=== PATIENT | male | born 1965 | race Caucasian/White ===

== ENCOUNTER 2016-09-10 08:35 | Inpatient (IN) | payer OTHER ==
[2016-09-10 09:01] VITALS: BMI 28.8
--- NOTE | 2016-09-10 12:26 | HP ---
CIWA Score - CIWA Score Nausea/Vomitin-Mild Nausea/No Vomiting (AND DIARRHEA) Muscle Tremors: 4-Moderate,w/Arms Extend Anxiety: 4-Mod. Anxious/Guarded Agitation: 4-Moderately Restless Paroxysmal Sweats: 3 Orientation: 0-Oriented Tacttile Disturbances: 0-None Auditory Disturbances: 0-None Visual Disturbances: 0-None Headache: 1-Very Mild CIWA-Ar Total Score: 17 Admission ROS BHS - HPI Chief Complaint: WITHDRAWAL SX. Allergies/Adverse Reactions: Allergies Allergy/AdvReac Type Severity Reaction Status Date / Time No Known Drug Allergies Allergy Verified 09/10/16 10:20 onion Allergy Difficulty Verified 09/10/16 10:20 Breathing shellfish derived Allergy Difficulty Verified 09/10/16 10:20 Breathing History of Present Illness: 51 Y/O MAN WITH A LONG HX. OF ALCOHOLISM IS ADMITTED FOR DETOX. PT. HAS BEEN IN PREVIOUS DETOX, REPORTS 5 YRS. OF SOBRIETY. Exam Limitations: No Limitations - Ebola screening Have you traveled outside of the country in the last 21 days: No Have you had contact with anyone from an Ebola affected area: No Have you been sick,other than usual withdrawal symptoms: No Do you have a fever: No - Review of Systems Constitutional: Diaphoresis EENT: reports: No Symptoms Reported Respiratory: reports: Cough (NON-PRODUCTIVE) Cardiac: reports: No Symptoms Reported GI: reports: Diarrhea : reports: No Symptoms Reported Musculoskeletal: reports: No Symptoms Reported Integumentary: reports: Sweating Endocrine: reports: No Symptoms Reported Hematology: reports: No Symptoms Reported Psychiatric: reports: No Sypmtoms Reported Other Systems: Reviewed and Negative Patient History - Patient Medical History Hx Anemia: No Hx Asthma: No Hx Chronic Obstructive Pulmonary Disease (COPD): No Hx Cancer: No Hx Cardiac Disorders: No Hx Congestive Heart Failure: No Hx Hypertension: No Hx Hypercholesterolemia: Yes (CRESTOR) Hx Pacemaker: No HX Cerebrovascular Accident: No Hx Seizures: No Hx Dementia: No Hx Diabetes: No Hx Gastrointestinal Disorders: No Hx Liver Disease: No Hx Genitourinary Disorders: No Hx Sexually Transmitted Disorders: No Hx Renal Disease (ESRD): No Hx Thyroid Disease: No Hx Human Immunodeficiency Virus (HIV): No Hx Hepatitis C: No Hx Depression: Yes Hx Suicide Attempt: No Hx Bipolar Disorder: Yes Hx Schizophrenia: No - Patient Surgical History Past Surgical History: Yes Hx Orthopedic Surgery: Yes (left knee torn ACL repair) Anesthesia Reaction: No - PPD History Previous Implant?: Yes Implanted On Prior [facility] Admission?: Yes Date: 03/30/16 PPD to be Administered?: Yes - Smoking Cessation Smoking history: Current every day smoker Have you smoked in the past 12 months: Yes Aproximately how many cigarettes per day: 10 Hx Chewing Tobacco Use: No Initiated information on smoking cessation: Yes 'Breaking Loose' booklet given: 09/10/16 - Substance & Tx. History Hx Alcohol Use: Yes Hx Substance Use: Yes Substance Use Type: Alcohol, Marijuana Hx Substance Use Treatment: Yes (DETOX,IOP) - Substances Abused Alcohol Route: Oral Frequency: Daily Amount used: vodka(1 quart)?beer(5-6 cans cobra) Age of first use: 11 Date of Last Use: 09/09/16 Marijuana/Hashish Route: Smoking Frequency: Daily Amount used: $5 Age of first use: 12 Date of Last Use: 09/09/16 Family Disease History - Family Disease History Family Disease History: Diabetes: Sister, Heart Disease: Mother (, alcohol), CA: Father (prostate cancer, etoh, ), Other: Father, Mother Admission Physical Exam [facility] - Vital Signs Vital Signs: Vital Signs - 24 hr 09/10/16 08:55 Temperature 95.1 F L Pulse Rate 71 Respiratory 18 Rate Blood Pressure 153/92 - Physical General Appearance: Yes: Alcohol on Breath, Tremorous, Sweating, Anxious HEENTM: Yes: Within Normal Limits Respiratory: Yes: Chest Non-Tender, Lungs Clear, Normal Breath Sounds Neck: Yes: Supple Breast: Yes: Breast Exam Deferred Cardiology: Yes: Regular Rhythm, Regular Rate, S1, S2 Abdominal: Yes: Normal Bowel Sounds, Non Tender, Soft Genitourinary: Yes: Within Normal Limits Back: Yes: Within Normal Limits Musculoskeletal: Yes: Within Normal Limits Extremities: Yes: Tremors Neurological: Yes: Fully Oriented, Alert Integumentary: Yes: Diaphoresis Lymphatic: Yes: Within Normal Limits - Diagnostic (1) Alcohol dependence with uncomplicated withdrawal Current Visit: Yes Status: Acute (2) Cannabis dependence, uncomplicated Current Visit: Yes Status: Acute Cleared for Admission [facility] - Detox or Rehab [facility] Level of Care: Medically Managed Detox Regimen/Protocol: Librium BHS Breath Alcohol Content Breath Alcohol Content: 0 Urine Drug Screen - Results Drug Screen Negative: No Urine Drug Screen Results: THC-Marijuana
[2016-09-10] MEDS ORDERED: LOPERAMIDE HCL 2 MG CAPSULE PO PRN (12:36)
[2016-09-10] MEDS ORDERED: IBUPROFEN 400 MG TABLET (FP) PO PRN (12:36)
[2016-09-10] MEDS ORDERED: MAGNESIUM CITRATE 300 ML BOTTLE PO PRN (12:36)
[2016-09-10] MEDS ORDERED: hydrOXYzine PAMOATE 50 MG CAPSULE (FP) PO PRN (12:36)
[2016-09-10] MEDS ORDERED: chlordiazePOXIDE HCL 25 MG CAPSULE PO PRN (12:36)
[2016-09-10] MEDS ORDERED: MAG HYDROX/AL HYDROX/SIMETH 30 ML UNIT-DOSE CUP PO PRN (12:36)
[2016-09-10] MEDS ORDERED: P-EPHED 60MG/TRIPROLIDI 2.5MG TABLET PO PRN (12:36)
[2016-09-10] MEDS ORDERED: guaiFENesin/D-METHORPHAN HB 10 ML UNIT-DOSE CUPS PO PRN (12:36)
[2016-09-10] MEDS ORDERED: MENTHOL/PHENOL 1 EACH UD MM PRN (12:36)
[2016-09-10] MEDS ORDERED: MAGNESIUM HYDROX 2400MG/30ML ORAL SUSPENSION 30 ML CUP PO PRN (12:36)
[2016-09-10] MEDS ORDERED: chlordiazePOXIDE HCL 25 MG CAPSULE PO ONE (12:58)
[2016-09-10] MEDS: NICOTINE POLACRILEX 2 MG GUM BUC PRN ×3 (13:50→20:36)
[2016-09-10] MEDS: NICOTINE 21 MG/24 HOURS TOPICAL PATCH TD SCH (13:50)
--- NOTE | 2016-09-10 16:14 | CONSULT ---
[facility] Psychiatric Consult - Data Date of interview: 09/10/16 Admission source: [facility] Identifying data: This is 51 years old male with history of Bip[olar disorder intpoxicated with: Alcohol, Cannabis, Nicotine, history of Op[ipoids, Cocaine and Xanax abuse as well Substance Abuse History: - Smoking Cessation. Smoking history: Current every day smoker. Have you smoked in the past 12 months: Yes. Aproximately how many cigarettes per day: 10. Hx Chewing Tobacco Use: No. Initiated information on smoking cessation: Yes. 'Breaking Loose' booklet given: 09/10/16. - Substance & Tx. History. Hx Alcohol Use: Yes. Hx Substance Use: Yes. Substance Use Type : Alcohol, Marijuana. Hx Substance Use Treatment: Yes (DETOX,IOP). - Substances Abused. Alcohol. Route: Oral. Frequency: Daily. Amount used: vodka(1 quart)?beer(5-6 cans cobra). Age of first use: 11. Date of Last Use: 09/09/16. Marijuana/Hashish. Route: Smoking. Frequency: Daily. Amount used: $5. Age of first use: 12. Date of Last Use: 09/09/16 Medical History: Denies Psychiatric History: P[atient reports to carry nBipolar disorder, reports no history of psychiatric admissions, reports currently stable on: Cymbalta 60mg poqd. Abilify 5mg po bid Physical/Sexual Abuse/Trauma History: Denies Additional Comment: Cymbalta 60mg poqd. Abilify 5mg po bid Mental Status Exam - Mental Status Exam Alert and Oriented to: Person Cognitive Function: Fair Patient Appearance: Well Groomed Mood: Anxious Affect: Mood Congruent, Normal Range Patient Behavior: Cooperative Speech Pattern: Appropriate Voice Loudness: Normal Thought Process: Goal Oriented Thought Disorder: Being Controlled Hallucinations: Denies Suicidal Ideation: Denies Homicidal Ideation: Denies Insight/Judgement: Fair Sleep: Difficulty falling asleep Appetite: Fair Muscle strength/Tone: Normal Gait/Station: Normal Additional Comments: Cymbalta 60mg poqd. Abilify 5mg po bid Psychiatric Findings - Problem List ([place] 1, 2,3) (1) Alcohol dependence with uncomplicated withdrawal Current Visit: Yes Status: Acute (2) Cannabis dependence, uncomplicated Current Visit: Yes Status: Acute (3) Cocaine dependence Current Visit: No Status: Acute Qualifiers: Substance use status: uncomplicated Qualified Code(s): F14.20 - Cocaine dependence, uncomplicated (4) Crack cocaine use Current Visit: No Status: Acute (5) Opioid abuse Current Visit: No Status: Acute (6) Sedative abuse Current Visit: No Status: Acute (7) Nicotine dependence Current Visit: No Status: Chronic Qualifiers: Nicotine product type: cigarettes Substance use status: uncomplicated Qualified Code(s): F17.210 - Nicotine dependence, cigarettes, uncomplicated (8) Bipolar disorder Current Visit: No Status: Suspected - Initial Treatment Plan Initial Treatment Plan: Cymbalta 60mg poqd. Abilify 5mg po bid
[2016-09-10] MEDS: chlordiazePOXIDE HCL 25 MG CAPSULE PO SCH ×2 (17:18→22:13)
[2016-09-10 17:30] LABS: URINE APPEARANCE CLEAR; URINE BILIRUBIN NEGATIVE (NEGATIVE); URINE BLOOD NEGATIVE (NEGATIVE); URINE COLOR YELLOW; URINE GLUCOSE (UA) NEGATIVE (NEGATIVE); URINE KETONE NEGATIVE (NEGATIVE); URINE LEUK ESTERASE NEGATIVE (NEGATIVE); URINE NITRITE NEGATIVE (NEGATIVE); URINE PROTEIN NEGATIVE (NEGATIVE); URINE UROBILINOGEN NEGATIVE E.U./dl (0.2-1.0)
[2016-09-10 19:45] LABS: HIV 1 & 2 AB NEGATIVE; HIV 1 AGp24 NEGATIVE
[2016-09-10] MEDS: THIAMINE HCL 100 MG TABLET (FP) PO SCH (22:12)
[2016-09-10] MEDS: ARIPiprazole 5 MG TABLET (FP) PO SCH (22:12)
[2016-09-10] MEDS: diphenhydrAMINE HCL 50 MG CAPSULE PO PRN (22:13)
[2016-09-11] MEDS: chlordiazePOXIDE HCL 25 MG CAPSULE PO SCH ×4 (05:25→22:06)
[2016-09-11 10:38] LABS: ALBUMIN 4.1 g/dl (3.4-5.0); ALK PHOS 109 U/L (45-117); ANION GAP 9 (8-16); BILIRUBIN,TOTAL 0.4 mg/dL (0.2-1.0); CALCIUM 8.9 mg/dL (8.5-10.1); CO2 24 mmol/L (21-32); CREATININE 0.9 mg/dL (0.7-1.3); GLUCOSE,RANDOM 106 mg/dL (74-106); SGOT/AST 29 U/L (15-37); SGPT/ALT 45 U/L (12-78); TOT PROT 7.3 g/dl (6.4-8.2)
--- NOTE | 2016-09-11 10:39 | PN ---
S CIWA - CIWA Score Nausea/Vomitin Muscle Tremors: 3 Anxiety: 3 Agitation: 2 Paroxysmal Sweats: 1-Minimal Palms Moist Orientation: 0-Oriented Tacttile Disturbances: 1-Very Mild Itch/Numbness Auditory Disturbances: 1-Very Mild Visual Disturbances: 1-Very Mild Sensitivity Headache: 2-Mild CIWA-Ar Total Score: 17 BHS Progress Note (SOAP) Subjective: alert,irritable,anxious,interrupted sleep,tremor Objective: 09/11/16 10:36 Vital Signs Temperature 98.5 F 09/11/16 09:56 Pulse Rate 81 09/11/16 09:56 Respiratory Rate 16 09/11/16 09:56 Blood Pressure 136/93 09/11/16 09:56 O2 Sat by Pulse Oximetry (%) ekg nsr,normal ecg Laboratory Last Values Sodium 139 mmol/L (136-145) 09/11/16 06:00 Potassium 3.6 mmol/L (3.5-5.1) 09/11/16 06:00 Chloride 106 mmol/L (98-107) 09/11/16 06:00 Urine Color Yellow 09/10/16 15:00 Urine Appearance Clear 09/10/16 15:00 Urine pH 5.0 (5.0-8.0) 09/10/16 15:00 Ur Specific [place] 1.028 (1.001-1.035) 09/10/16 15:00 Urine Protein Negative (NEGATIVE) 09/10/16 15:00 Urine Glucose (UA) Negative (NEGATIVE) 09/10/16 15:00 Urine Ketones Negative (NEGATIVE) 09/10/16 15:00 Urine Blood Negative (NEGATIVE) 09/10/16 15:00 Urine Nitrite Negative (NEGATIVE) 09/10/16 15:00 Urine Bilirubin Negative (NEGATIVE) 09/10/16 15:00 Urine Urobilinogen Negative E.U./dl (0.2-1.0) 09/10/16 15:00 Ur Leukocyte Esterase Negative (NEGATIVE) 09/10/16 15:00 HIV 1&2 Antibody Screen Negative 09/10/16 11:40 HIV P24 Antigen Negative 09/10/16 11:40 09/11/16 10:38 labs pending Assessment: 09/11/16 10:38 withdrawal symptom Plan: continue detox
[2016-09-11] MEDS: NICOTINE 21 MG/24 HOURS TOPICAL PATCH TD SCH (10:46)
[2016-09-11] MEDS: ARIPiprazole 5 MG TABLET (FP) PO SCH ×2 (10:46→22:06)
[2016-09-11] MEDS: DULoxetine HCL 60 MG CAPSULE.DR PO SCH (10:46)
[2016-09-11] MEDS: PRENATAL VITAMINS W/ FOLIC ACID TABLET (FP) PO SCH (10:48)
[2016-09-11 10:59] LABS: MCH 31.4 pg (25.7-33.7); MCHC 34.1 g/dl (32.0-35.9); MEAN PLT VOLUME 9.5 fl (7.5-11.1); PLATELET COUNT 221 K/MM3 (134-434); RDW 13.7 % (11.9-15.9); WHITE BLOOD COUNT 8.9 K/mm3 (4.0-10.0)
[2016-09-11] MEDS: ACETAMINOPHEN 325 MG TABLET (FP) PO PRN (13:05)
[2016-09-11] MEDS: NICOTINE POLACRILEX 2 MG GUM BUC PRN (17:25)
[2016-09-11] MEDS: diphenhydrAMINE HCL 50 MG CAPSULE PO PRN (22:06)
[2016-09-11] MEDS: THIAMINE HCL 100 MG TABLET (FP) PO SCH (22:06)
[2016-09-12] MEDS: chlordiazePOXIDE HCL 25 MG CAPSULE PO SCH ×2 (05:55→10:32)
[2016-09-12] MEDS: DULoxetine HCL 60 MG CAPSULE.DR PO SCH (10:32)
[2016-09-12] MEDS: NICOTINE 21 MG/24 HOURS TOPICAL PATCH TD SCH (10:32)
[2016-09-12] MEDS: PRENATAL VITAMINS W/ FOLIC ACID TABLET (FP) PO SCH (10:32)
[2016-09-12] MEDS: ARIPiprazole 5 MG TABLET (FP) PO SCH ×2 (10:32→22:17)
[2016-09-12] MEDS: NICOTINE POLACRILEX 2 MG GUM BUC PRN ×3 (10:35→22:49)
[2016-09-12] MEDS: ACETAMINOPHEN 325 MG TABLET (FP) PO PRN (12:19)
[2016-09-12] MEDS: chlordiazePOXIDE 5 MG CAPSULE PO SCH ×2 (17:27→22:17)
[2016-09-12] MEDS: NICOTINE 14 MG/24 HOURS TOPICAL PATCH TD SCH (17:27)
--- NOTE | 2016-09-12 22:06 | PN ---
[id number] 3 Anxiety: 4-Mod. Anxious/Guarded Agitation: 4-Moderately Restless Paroxysmal Sweats: 3 Orientation: 0-Oriented Tacttile Disturbances: 0-None Auditory Disturbances: 0-None Visual Disturbances: 0-None Headache: 0-None Present CIWA-Ar Total Score: 14 BHS Progress Note (SOAP) Subjective: ANXIETY,TREMORS,SWEATING,INTERRUPTED SLEEP,RESTLESS. Objective: 09/12/16 22:04 Vital Signs - 8 hr 09/12/16 09/12/16 14:26 20:03 Temperature 96.4 F L 96.4 F L Pulse Rate 89 80 Respiratory 20 18 Rate Blood Pressure 152/92 121/77 Assessment: 09/12/16 22:05 Withdrawal sx Plan: CONTINUE DETOX
[2016-09-12] MEDS: THIAMINE HCL 100 MG TABLET (FP) PO SCH (22:17)
[2016-09-12] MEDS: diphenhydrAMINE HCL 50 MG CAPSULE PO PRN (22:17)
[2016-09-13] MEDS: chlordiazePOXIDE 5 MG CAPSULE PO SCH ×2 (05:13→10:08)
[2016-09-13] MEDS: NICOTINE POLACRILEX 2 MG GUM BUC PRN ×3 (05:16→22:42)
[2016-09-13] MEDS: PRENATAL VITAMINS W/ FOLIC ACID TABLET (FP) PO SCH (10:09)
[2016-09-13] MEDS: DULoxetine HCL 60 MG CAPSULE.DR PO SCH (10:09)
[2016-09-13] MEDS: ARIPiprazole 5 MG TABLET (FP) PO SCH ×2 (10:09→22:40)
[2016-09-13] MEDS: NICOTINE 14 MG/24 HOURS TOPICAL PATCH TD SCH (10:09)
[2016-09-13] MEDS ORDERED: ZOLPIDEM TARTRATE 10 MG TABLET (PARK CARE ONLY) PO PRN (15:04)
--- NOTE | 2016-09-13 15:07 | PN ---
BHS Progress Note (SOAP) Subjective: Sweats, interrupted sleep (patient states benadryl ineffective), anxiety Objective: 09/13/16 15:05 Last Vital Signs Temp Pulse Resp BP Pulse Ox 96.4 F L 91 H 18 123/84 09/13/16 13:36 09/13/16 13:36 09/13/16 13:36 09/13/16 13:36 Laboratory Tests 09/10/16 09/10/16 09/11/16 11:40 15:00 06:00 WBC 8.9 D RBC 4.22 Hgb 13.2 Hct 38.8 MCV 92.0 MCHC 34.1 RDW 13.7 Plt Count 221 D MPV 9.5 Sodium Potassium Chloride Carbon Dioxide Anion Gap BUN Creatinine Creat Clearance w eGFR Random Glucose Calcium Total Bilirubin AST ALT Alkaline Phosphatase Total Protein Albumin Urine Color Yellow Urine Appearance Clear Urine pH 5.0 Ur Specific [place] 1.028 Urine Protein Negative Urine Glucose (UA) Negative Urine Ketones Negative Urine Blood Negative Urine Nitrite Negative Urine Bilirubin Negative Urine Urobilinogen Negative Ur Leukocyte Esterase Negative RPR Titer HIV 1&2 Antibody Screen Negative HIV P24 Antigen Negative 09/11/16 09/11/16 06:00 06:00 WBC RBC Hgb Hct MCV MCHC RDW Plt Count MPV Sodium 139 Potassium 3.6 Chloride 106 Carbon Dioxide 24 Anion Gap 9 BUN 21 H D Creatinine 0.9 Creat Clearance w eGFR > 60 Random Glucose 106 D Calcium 8.9 Total Bilirubin 0.4 AST 29 D ALT 45 Alkaline Phosphatase 109 Total Protein 7.3 Albumin 4.1 Urine Color Urine Appearance Urine pH Ur Specific [place] Urine Protein Urine Glucose (UA) Urine Ketones Urine Blood Urine Nitrite Urine Bilirubin Urine Urobilinogen Ur Leukocyte Esterase RPR Titer Nonreactive HIV 1&2 Antibody Screen HIV P24 Antigen Labs noted Assessment: 09/13/16 15:06 Withdrawal symptoms Plan: Continue detox, ambien 10mg qhs prn for interrupted sleep
[2016-09-13] MEDS: chlordiazePOXIDE HCL 10 MG CAPSULE PO SCH ×2 (17:28→22:40)
[2016-09-13] MEDS: THIAMINE HCL 100 MG TABLET (FP) PO SCH (22:40)
[2016-09-14] MEDS: chlordiazePOXIDE HCL 10 MG CAPSULE PO SCH (05:37)
[2016-09-14 06:13] VITALS: BP 133/91; PULSE 99; TEMP 97.2
--- NOTE | 2016-09-14 09:17 | PN ---
S Progress Note (SOAP) Subjective: alert,no complaint Objective: 09/14/16 09:15 Vital Signs Temperature 97.2 F L 09/14/16 06:12 Pulse Rate 99 H 09/14/16 06:12 Respiratory Rate 18 09/14/16 06:12 Blood Pressure 133/91 09/14/16 06:12 O2 Sat by Pulse Oximetry (%) Assessment: 09/14/16 09:15 detox completed,no withdrawal symptom Plan: discharge today,follow up with after care program as arrangement
--- NOTE | 2016-09-14 09:21 | DS ---
[facility] Detox Discharge Summary Admission Date: 09/10/16 Discharge Date: 09/14/16 - History Present History: Alcohol Dependence, Cannabis Dependence Additional Comments: follow up with after [facility] program as arrangement and pmd for medical problem Pertinent Past History: insomnia - Physical Exam Results Vital Signs: Vital Signs Temperature 97.2 F L 09/14/16 06:12 Pulse Rate 99 H 09/14/16 06:12 Respiratory Rate 18 09/14/16 06:12 Blood Pressure 133/91 09/14/16 06:12 O2 Sat by Pulse Oximetry (%) Pertinent Admission Physical Exam Findings: withdrawal symptom - Treatment Hospital Course: Detox Protocol Followed, Detoxed Safely, Responded well, Discharged Condition Good, Rehab Referral Accepted Patient has Accepted a Re[facility] Referral to: [facility] - Medication Discharge Medications: Ambulatory Orders Aripiprazole [Abilify -] 5 mg PO DAILY 03/28/16 Duloxetine HCl [Cymbalta -] 30 mg PO BID 03/28/16 Aripiprazole [Abilify -] 5 mg PO BID #60 tablet 09/10/16 Duloxetine HCl [Cymbalta -] 60 mg PO DAILY #30 capsule. 09/10/16 - NBA Did Patient Leave Against Medical Advice: No
--- NOTE | 2016-09-16 10:17 | EKG ---
Test Reason : Blood Pressure : / mmHG Vent. Rate : 085 BPM Atrial Rate : 085 BPM P-R Int : 152 ms QRS Dur : 102 ms QT Int : 372 ms P-R-T Axes : -09 068 068 degrees QTc Int : 442 ms NORMAL SINUS RHYTHM NORMAL ECG NO PREVIOUS ECGS AVAILABLE Confirmed by THERON POWELL, MORGAN ([id number]) on 09/16/2016 10:17:30 AM Referred By: Ignacio Iqbal Confirmed By:MORGAN CRUMP MD
== END 2016-09-14 09:49 | disposition home or self-care (01) | DRG 775 ==
LOC: YASAS 08:35 → Y3N 12:47
PROVIDERS: ADMIT Internal Medicine; ATTEND Internal Medicine
PROC: HZ2ZZZZ Detoxification Services for Substance Abuse Treatment (ICD-10-PCS; principal; 2016-09-10)
DX: F10.230 Alcohol dependence with withdrawal, uncomplicated (principal); F12.20 Cannabis dependence, uncomplicated; F17.210 Nicotine dependence, cigarettes, uncomplicated; F31.9 Bipolar disorder, unspecified; G47.00 Insomnia, unspecified; E78.00 Pure hypercholesterolemia, unspecified
CPT/HCPCS: 36415; 80053; 81003; 85027; 86593; 87389; 93005; 93010

== ENCOUNTER 2018-10-08 08:31 | Inpatient (IN) | payer OTHER ==
[2018-10-08 09:23] VITALS: BMI 26.7
--- NOTE | 2018-10-08 09:48 | HP ---
COWS - Scale Resting Pulse: 0= [place] 80 or Below Sweatin= Chills/Flushing Restless Observation: 3= Extraneous Movement Pupil Size: 1= Pupils >than Normal Bone or Joint Aches: 2= Severe Diffuse Aches Runny Nose/ Eye Tearin= Runny Nose/Eyes GI Upset > 30mins: 3= Vomiting/Diarrhea Tremor Observation: 2= Slight Tremor Visible Yawning Observation: 2= >3x During Session Anxiety or Irritability: 2=Irritable/Anxious Goose Flesh Skin: 0=Smooth Skin COWS Score: 18 CIWA Score Nausea/Vomitin Muscle Tremors: 3 Anxiety: 3 Agitation: 2 Paroxysmal Sweats: 1-Minimal Palms Moist Orientation: 0-Oriented Tacttile Disturbances: 1-Very Mild Itch/Numbness Auditory Disturbances: 1-Very Mild Visual Disturbances: 0-None Headache: 2-Mild CIWA-Ar Total Score: 16 - Admission Criteria [facility] Guidelines: Admission for Medically Managed Detox: Requires at least one of the followin. CIWA greater than 12 2. Seizures within the past 24 hours 3. Delirium tremens within the past 24 hours 4. Hallucinations within the past 24 hours 5. Acute intervention needed for co occurring medical disorder 6. Acute intervention needed for co occurring psychiatric disorder 7. Severe withdrawal that cannot be handled at a lower level of care (continued vomiting, continued diarrhea, abnormal vital signs) requiring intravenous medication and/or fluids 8. Patient presents the following: CIWA greater than 12 Admission Criteria Met: Admission criteria met Admission ROS S - [facility] Chief Complaint: i need help to stop using heroin and alcohol Allergies/Adverse Reactions: Allergies Allergy/AdvReac Type Severity Reaction Status Date / Time No Known Drug Allergies Allergy Verified 09/10/16 10:20 onion Allergy Difficulty Verified 09/10/16 10:20 Breathing shellfish derived Allergy Difficulty Verified 09/10/16 10:20 Breathing History of Present Illness: this 53 years old male with heroin and alcohol dependence,seeking detox, withdrawal symptom,last treatment [facility] 7 to 09/14/16 history of hypertension,no med nicotine dependence longest period of sobriety 5 years seen in [facility] last night history of [place] bite 1 month still have numbness of finger tips Exam Limitations: No Limitations - Ebola screening Have you traveled outside of the country in the last 21 days: No (N) Have you had contact with anyone from an Ebola affected area: No Have you been sick,other than usual withdrawal symptoms: No Do you have a fever: No - Review of Systems Constitutional: Chills, Loss of Appetite, Malaise, Night Sweats, Changes in sleep, Weakness EENT: reports: Tearing, Nose Congestion Respiratory: reports: No Symptoms reported Cardiac: reports: No Symptoms Reported GI: reports: Diarrhea, Nausea, Vomiting, Abdominal cramping : reports: No Symptoms Reported Musculoskeletal: reports: Back Pain, Joint Pain, Muscle Pain, Joint Stiffness Integumentary: reports: Dryness Neuro: reports: Headache, Tremors Endocrine: reports: No Symptoms Reported Hematology: reports: No Symptoms Reported Psychiatric: reports: No Sypmtoms Reported, Judgement Intact, Mood/Affect Appropiate, Orientated x3 Other Systems: Reviewed and Negative Patient History - Patient Medical History Hx Anemia: No Hx Asthma: No Hx Chronic Obstructive Pulmonary Disease (COPD): No Hx Cancer: No Hx Cardiac Disorders: No Hx Congestive Heart Failure: No Hx Hypertension: No Hx Hypercholesterolemia: Yes (no med) Hx Pacemaker: No HX Cerebrovascular Accident: No Hx Seizures: No Hx Dementia: No Hx Diabetes: No Hx Gastrointestinal Disorders: No Hx Liver Disease: No Hx Genitourinary Disorders: No Hx Sexually Transmitted Disorders: No Hx Renal Disease (ESRD): No Hx Thyroid Disease: No Hx Human Immunodeficiency Virus (HIV): No (last 08/23 negative) Hx Hepatitis C: No Hx Depression: Yes Hx Suicide Attempt: No Hx Bipolar Disorder: Yes (no meds) Hx Schizophrenia: No Other Medical History: no suicidal,no homicidal, - Patient Surgical History Past Surgical History: Yes Hx Orthopedic Surgery: Yes (left knee torn ACL repair in 1979 ) Anesthesia Reaction: No - PPD History Previous Implant?: Yes Documented Results: Negative w/o proof Date: 09/12/16 PPD to be Administered?: Yes - Smoking Cessation Smoking history: Current every day smoker Have you smoked in the past 12 months: Yes Aproximately how many cigarettes per day: 10 Hx Chewing Tobacco Use: No Initiated information on smoking cessation: Yes 'Breaking Loose' booklet given: 10/08/18 - Substance & Tx. History Hx Alcohol Use: Yes Hx Substance Use: Yes Substance Use Type: Alcohol, Cocaine, Heroin, Marijuana Hx Substance Use Treatment: Yes ([facility] 09/10/16 to 09/14/16) - Substances Abused Heroin Route: Injection Frequency: Daily Amount used: 4 bags Age of first use: 24 Date of Last Use: 10/07/18 Alcohol Route: Oral Frequency: Daily Amount used: 10 of 24 ozs of beer Age of first use: 11 Date of Last Use: 10/08/18 Cocaine Route: Smoking Frequency: Daily Amount used: 100$ Age of first use: 24 Date of Last Use: 10/07/18 Marijuana/Hashish Route: Smoking Frequency: 1-2 times per week Amount used: 10$ Age of first use: 12 Date of Last Use: 10/07/18 Family Disease History - Family Disease History Family Disease History: Diabetes: Sister, Heart Disease: Mother (, alcohol), CA: Father (prostate cancer, etoh, ), Other: Father, Mother Admission Physical Exam S - Vital Signs Vital Signs: Vital Signs - 24 hr 10/08/18 09:21 Temperature 97.0 F L Pulse Rate 70 Respiratory 18 Rate Blood Pressure 147/86 - Physical General Appearance: Yes: Moderate Distress, Tremorous, Irritable, Sweating, Anxious HEENTM: Yes: Normal ENT Inspection, DANNY, Pharynx Normal Respiratory: Yes: Within Normal Limits, Lungs Clear, Normal Breath Sounds Neck: Yes: Within Normal Limits, Supple, Trachea in good position Breast: Yes: Within Normal Limits Cardiology: Yes: Within Normal Limits, Regular Rhythm, Regular Rate Abdominal: Yes: Within Normal Limits, Normal Bowel Sounds, Non Tender, Soft Genitourinary: Yes: Within Normal Limits Back: Yes: Normal Inspection, Muscle Spasm Musculoskeletal: Yes: Back pain, Muscle Pain Extremities: Yes: Tremors Neurological: Yes: wool brusher II-XII NML intact, Fully Oriented, Alert, Motor Strength 5/5 Integumentary: Yes: Dry Lymphatic: Yes: Within Normal Limits - Diagnostic (1) Opioid dependence with withdrawal Current Visit: Yes Status: Acute (2) Cannabis dependence, uncomplicated Current Visit: No Status: Acute (3) Cocaine dependence Current Visit: No Status: Acute Qualifiers: Substance use status: uncomplicated Qualified Code(s): F14.20 - Cocaine dependence, uncomplicated (4) Nicotine dependence Current Visit: No Status: Chronic Qualifiers: Nicotine product type: cigarettes Substance use status: uncomplicated Qualified Code(s): F17.210 - Nicotine dependence, cigarettes, uncomplicated (5) Alcohol dependence with uncomplicated withdrawal Current Visit: No Status: Acute (6) History of knee surgery Current Visit: Yes Status: Chronic Cleared for Admission [facility] - Detox or Rehab [facility] Level of Care: Medically Managed Detox Regimen/Protocol: Methadone/Librium [facility] Breath Alcohol Content Breath Alcohol Content: 0.033 Urine Drug Screen - Results Drug Screen Negative: No Urine Drug Screen Results: THC-Marijuana, SANDY-Cocaine, OPI-Opiates, MTD- Methadone, OXY-Oxycodone
[2018-10-08] MEDS ORDERED: IBUPROFEN 400 MG TABLET (FP) PO PRN (10:02)
[2018-10-08] MEDS ORDERED: MENTHOL/PHENOL 1 EACH UD MM PRN (10:02)
[2018-10-08] MEDS ORDERED: LOPERAMIDE HCL 2 MG CAPSULE PO PRN (10:02)
[2018-10-08] MEDS ORDERED: MAG HYDROX/AL HYDROX/SIMETH 30 ML UNIT-DOSE CUP PO PRN (10:02)
[2018-10-08] MEDS ORDERED: MAGNESIUM HYDROX 2400MG/30ML ORAL SUSPENSION 30 ML CUP PO PRN (10:02)
[2018-10-08] MEDS ORDERED: P-EPHED 60MG/TRIPROLIDI 2.5MG TABLET PO PRN (10:02)
[2018-10-08] MEDS ORDERED: NICOTINE POLACRILEX 2 MG GUM BUC PRN (10:02)
[2018-10-08] MEDS ORDERED: chlordiazePOXIDE HCL 25 MG CAPSULE PO PRN (10:02)
[2018-10-08] MEDS ORDERED: guaiFENesin/D-METHORPHAN HB 10 ML UNIT-DOSE CUPS PO PRN (10:02)
[2018-10-08] MEDS ORDERED: ACETAMINOPHEN 325 MG TABLET (FP) PO PRN (10:02)
[2018-10-08] MEDS ORDERED: MAGNESIUM CITRATE 300 ML BOTTLE PO PRN (10:02)
[2018-10-08] MEDS ORDERED: METHADONE HCL 10 MG TABLET (FOR DETOX USE ONLY) PO ONE ×2 (11:30→23:00)
[2018-10-08] MEDS: chlordiazePOXIDE HCL 25 MG CAPSULE PO SCH ×2 (17:08→22:22)
[2018-10-08] MEDS: THIAMINE HCL 100 MG TABLET (FP) PO SCH (22:22)
[2018-10-08] MEDS: CYCLOBENZAPRINE HCL 10 MG TABLET (FP) PO PRN (22:22)
[2018-10-08] MEDS: cloNIDine HCL 0.1 MG TABLET PO SCH (22:22)
[2018-10-09] MEDS: chlordiazePOXIDE HCL 25 MG CAPSULE PO SCH ×4 (06:15→22:04)
[2018-10-09] MEDS ORDERED: METHADONE HCL 10 MG TABLET (FOR DETOX USE ONLY) PO SCH (10:00)
[2018-10-09] MEDS: cloNIDine HCL 0.1 MG TABLET PO SCH ×2 (10:06→22:04)
[2018-10-09] MEDS: PRENATAL VITAMINS W/ FOLIC ACID TABLET (FP) PO SCH (10:06)
[2018-10-09 10:31] LABS: ALBUMIN 3.2 g/dl (3.4-5.0); ALK PHOS 92 U/L (45-117); ANION GAP 10 MMOL/L (8-16); BILIRUBIN,TOTAL 0.3 mg/dL (0.2-1); BLOOD UREA NITROGEN 15 mg/dL (7-18); CALCIUM 8.4 mg/dL (8.5-10.1); CHLORIDE 108 mmol/L (98-107); CO2 24 mmol/L (21-32); CREATININE 0.9 mg/dL (0.55-1.3); GLUCOSE,RANDOM 121 mg/dL (74-106); POTASSIUM 3.8 mmol/L (3.5-5.1); SGOT/AST 13 U/L (15-37); SGPT/ALT 18 U/L (13-61); SODIUM 141 mmol/L (136-145); TOT PROT 6.4 g/dl (6.4-8.2)
[2018-10-09 10:40] LABS: HEMATOCRIT 36.3 % (35.4-49); HEMOGLOBIN 12.4 GM/dL (11.7-16.9); MCH 31.9 pg (25.7-33.7); MCHC 34.1 g/dl (32.0-35.9); MEAN CELL VOLUME 93.5 fl (80-96); MEAN PLT VOLUME 8.2 fl (7.5-11.1); PLATELET COUNT 262 K/MM3 (134-434); RBC 3.89 M/mm3 (4.00-5.60); RDW 16.8 % (11.9-15.9); WHITE BLOOD COUNT 5.8 K/mm3 (4.0-10.0)
--- NOTE | 2018-10-09 11:12 | PN ---
S CIWA - CIWA Score Nausea/Vomitin-Mild Nausea/No Vomiting Muscle Tremors: 3 Anxiety: 2 Agitation: 2 Paroxysmal Sweats: 1-Minimal Palms Moist Orientation: 1-Uncertain about Date Tacttile Disturbances: 0-None Auditory Disturbances: 0-None Visual Disturbances: 0-None Headache: 2-Mild CIWA-Ar Total Score: 12 BHS COWS - Scale Resting Pulse: 0= [place] 80 or Below Sweatin= Chills/Flushing Restless Observation: 1= Difficult to Sit Still Pupil Size: 0= Normal to Room Light Bone or Joint Aches: 2= Severe Diffuse Aches Runny Nose/ Eye Tearin= Nasal Congestion GI Upset > 30mins: 2= Nausea/Diarrhea Tremor Observation of Outstretched Hands: 2= Slight Tremor Visible Yawning Observation: 1= 1-2x During Session Anxiety or Irritability: 2=Irritable/Anxious Goose Flesh Skin: 0=Smooth Skin COWS Score: 12 S Progress Note (SOAP) Subjective: body aches tremor joints pain sweating administrative underwriter called [phone] last filled 2016 no further information discuss with the patient for recent pharmacy and/or provider location and/or name Objective: 10/09/18 11:17 Vital Signs Temperature 95.9 F L 10/09/18 09:27 Pulse Rate 82 10/09/18 09:27 Respiratory Rate 18 10/09/18 09:27 Blood Pressure 113/69 10/09/18 09:27 O2 Sat by Pulse Oximetry (%) Laboratory Last Values WBC 5.8 K/mm3 (4.0-10.0) 10/09/18 07:50 RBC 3.89 M/mm3 (4.00-5.60) L 10/09/18 07:50 Hgb 12.4 GM/dL (11.7-16.9) 10/09/18 07:50 Hct 36.3 % (35.4-49) 10/09/18 07:50 MCV 93.5 fl (80-96) 10/09/18 07:50 MCH 31.9 pg (25.7-33.7) 10/09/18 07:50 MCHC 34.1 g/dl (32.0-35.9) 10/09/18 07:50 RDW 16.8 % (11.9-15.9) H 10/09/18 07:50 Plt Count 262 K/MM3 (134-434) 10/09/18 07:50 MPV 8.2 fl (7.5-11.1) D 10/09/18 07:50 Sodium 141 mmol/L (136-145) 10/09/18 07:50 Potassium 3.8 mmol/L (3.5-5.1) 10/09/18 07:50 Chloride 108 mmol/L (98-107) H 10/09/18 07:50 Carbon Dioxide 24 mmol/L (21-32) 10/09/18 07:50 Anion Gap 10 MMOL/L (8-16) 10/09/18 07:50 BUN 15 mg/dL (7-18) 10/09/18 07:50 Creatinine 0.9 mg/dL (0.55-1.3) 10/09/18 07:50 Creat Clearance w eGFR > 60 (>60) 10/09/18 07:50 Random Glucose 121 mg/dL (74-106) H 10/09/18 07:50 Calcium 8.4 mg/dL (8.5-10.1) L 10/09/18 07:50 Total Bilirubin 0.3 mg/dL (0.2-1) 10/09/18 07:50 AST 13 U/L (15-37) L 10/09/18 07:50 ALT 18 U/L (13-61) 10/09/18 07:50 Alkaline Phosphatase 92 U/L (45-117) 10/09/18 07:50 Total Protein 6.4 g/dl (6.4-8.2) 10/09/18 07:50 Albumin 3.2 g/dl (3.4-5.0) L 10/09/18 07:50 lab noted Assessment: 10/09/18 11:17 withdrawal sx Plan: continue detox
[2018-10-09] MEDS: THIAMINE HCL 100 MG TABLET (FP) PO SCH (22:04)
[2018-10-09] MEDS: CYCLOBENZAPRINE HCL 10 MG TABLET (FP) PO PRN (22:04)
[2018-10-10] MEDS: chlordiazePOXIDE HCL 25 MG CAPSULE PO SCH ×2 (05:11→10:05)
[2018-10-10] MEDS: cloNIDine HCL 0.1 MG TABLET PO SCH ×2 (10:05→22:27)
[2018-10-10] MEDS: METHADONE HCL 5 MG TABLET (FOR DETOX USE ONLY) PO SCH (10:05)
--- NOTE | 2018-10-10 10:05 | PN ---
[facility]WA - CIWA Score Nausea/Vomitin-No Nausea/No Vomiting Muscle Tremors: 3 Anxiety: 2 Agitation: 2 Paroxysmal Sweats: 1-Minimal Palms Moist Orientation: 0-Oriented Tacttile Disturbances: 0-None Auditory Disturbances: 0-None Visual Disturbances: 0-None Headache: 2-Mild CIWA-Ar Total Score: 10 BHS COWS - Scale Resting Pulse: 0= SC 80 or Below Sweatin= Chills/Flushing Restless Observation: 0= Sits Still Pupil Size: 0= Normal to Room Light Bone or Joint Aches: 1= Mild Discomfort Runny Nose/ Eye Tearin= Nasal Congestion GI Upset > 30mins: 1= Stomach Cramp Tremor Observation of Outstretched Hands: 1= Tremor [place], Not Seen Yawning Observation: 1= 1-2x During Session Anxiety or Irritability: 1=Feels Anxious/Irritable Goose Flesh Skin: 0=Smooth Skin COWS Score: 7 S Progress Note (SOAP) Subjective: mild body aches less tremor otherwise feeling ok Objective: 10/10/18 10:04 Vital Signs Temperature 96.4 F L 10/10/18 09:04 Pulse Rate 64 10/10/18 09:04 Respiratory Rate 16 10/10/18 09:04 Blood Pressure 102/56 L 10/10/18 09:04 O2 Sat by Pulse Oximetry (%) Laboratory Last Values WBC 5.8 K/mm3 (4.0-10.0) 10/09/18 07:50 RBC 3.89 M/mm3 (4.00-5.60) L 10/09/18 07:50 Hgb 12.4 GM/dL (11.7-16.9) 10/09/18 07:50 Hct 36.3 % (35.4-49) 10/09/18 07:50 MCV 93.5 fl (80-96) 10/09/18 07:50 MCH 31.9 pg (25.7-33.7) 10/09/18 07:50 MCHC 34.1 g/dl (32.0-35.9) 10/09/18 07:50 RDW 16.8 % (11.9-15.9) H 10/09/18 07:50 Plt Count 262 K/MM3 (134-434) 10/09/18 07:50 MPV 8.2 fl (7.5-11.1) D 10/09/18 07:50 Sodium 141 mmol/L (136-145) 10/09/18 07:50 Potassium 3.8 mmol/L (3.5-5.1) 10/09/18 07:50 Chloride 108 mmol/L (98-107) H 10/09/18 07:50 Carbon Dioxide 24 mmol/L (21-32) 10/09/18 07:50 Anion Gap 10 MMOL/L (8-16) 10/09/18 07:50 BUN 15 mg/dL (7-18) 10/09/18 07:50 Creatinine 0.9 mg/dL (0.55-1.3) 10/09/18 07:50 Creat Clearance w eGFR > 60 (>60) 10/09/18 07:50 Random Glucose 121 mg/dL (74-106) H 10/09/18 07:50 Calcium 8.4 mg/dL (8.5-10.1) L 10/09/18 07:50 Total Bilirubin 0.3 mg/dL (0.2-1) 10/09/18 07:50 AST 13 U/L (15-37) L 10/09/18 07:50 ALT 18 U/L (13-61) 10/09/18 07:50 Alkaline Phosphatase 92 U/L (45-117) 10/09/18 07:50 Total Protein 6.4 g/dl (6.4-8.2) 10/09/18 07:50 Albumin 3.2 g/dl (3.4-5.0) L 10/09/18 07:50 RPR Titer Nonreactive (NONREACTIVE) 10/09/18 07:50 lab noted Assessment: 10/10/18 10:05 withdrawal sx Plan: continue detox
[2018-10-10] MEDS: PRENATAL VITAMINS W/ FOLIC ACID TABLET (FP) PO SCH (10:07)
[2018-10-10 10:08] LABS: URINE APPEARANCE CLEAR; URINE BILIRUBIN NEGATIVE (<2.0 mg/dL); URINE COLOR STRAW; URINE GLUCOSE (UA) NEGATIVE (NEGATIVE); URINE KETONE NEGATIVE (NEGATIVE); URINE LEUK ESTERASE NEGATIVE (NEGATIVE); URINE NITRITE NEGATIVE (NEGATIVE); URINE PROTEIN NEGATIVE (NEGATIVE); URINE UROBILINOGEN NEGATIVE mg/dL (0.2-1.0)
[2018-10-10] MEDS: chlordiazePOXIDE 5 MG CAPSULE PO SCH ×2 (17:00→22:27)
[2018-10-10] MEDS: THIAMINE HCL 100 MG TABLET (FP) PO SCH (22:27)
[2018-10-10] MEDS: MELATONIN 5 MG TABLETS PO PRN (22:28)
[2018-10-11] MEDS: chlordiazePOXIDE 5 MG CAPSULE PO SCH ×2 (05:58→10:37)
[2018-10-11] MEDS: cloNIDine HCL 0.1 MG TABLET PO SCH ×2 (10:36→22:22)
[2018-10-11] MEDS: PRENATAL VITAMINS W/ FOLIC ACID TABLET (FP) PO SCH (10:36)
[2018-10-11] MEDS: METHADONE HCL 5 MG TABLET (FOR DETOX USE ONLY) PO SCH (10:36)
--- NOTE | 2018-10-11 14:42 | PN ---
[facility] Progress Note (SOAP) Subjective: body aches muscle cramping tremor sweating Objective: 10/11/18 14:41 Vital Signs Temperature 97.6 F 10/11/18 13:40 Pulse Rate 92 H 10/11/18 13:40 Respiratory Rate 18 10/11/18 13:40 Blood Pressure 119/70 10/11/18 13:40 O2 Sat by Pulse Oximetry (%) Laboratory Last Values WBC 5.8 K/mm3 (4.0-10.0) 10/09/18 07:50 RBC 3.89 M/mm3 (4.00-5.60) L 10/09/18 07:50 Hgb 12.4 GM/dL (11.7-16.9) 10/09/18 07:50 Hct 36.3 % (35.4-49) 10/09/18 07:50 MCV 93.5 fl (80-96) 10/09/18 07:50 MCH 31.9 pg (25.7-33.7) 10/09/18 07:50 MCHC 34.1 g/dl (32.0-35.9) 10/09/18 07:50 RDW 16.8 % (11.9-15.9) H 10/09/18 07:50 Plt Count 262 K/MM3 (134-434) 10/09/18 07:50 MPV 8.2 fl (7.5-11.1) D 10/09/18 07:50 Sodium 141 mmol/L (136-145) 10/09/18 07:50 Potassium 3.8 mmol/L (3.5-5.1) 10/09/18 07:50 Chloride 108 mmol/L (98-107) H 10/09/18 07:50 Carbon Dioxide 24 mmol/L (21-32) 10/09/18 07:50 Anion Gap 10 MMOL/L (8-16) 10/09/18 07:50 BUN 15 mg/dL (7-18) 10/09/18 07:50 Creatinine 0.9 mg/dL (0.55-1.3) 10/09/18 07:50 Creat Clearance w eGFR > 60 (>60) 10/09/18 07:50 Random Glucose 121 mg/dL (74-106) H 10/09/18 07:50 Calcium 8.4 mg/dL (8.5-10.1) L 10/09/18 07:50 Total Bilirubin 0.3 mg/dL (0.2-1) 10/09/18 07:50 AST 13 U/L (15-37) L 10/09/18 07:50 ALT 18 U/L (13-61) 10/09/18 07:50 Alkaline Phosphatase 92 U/L (45-117) 10/09/18 07:50 Total Protein 6.4 g/dl (6.4-8.2) 10/09/18 07:50 Albumin 3.2 g/dl (3.4-5.0) L 10/09/18 07:50 Urine Color Straw 10/10/18 07:00 Urine Appearance Clear 10/10/18 07:00 Urine pH 7.0 (5.0-8.0) D 10/10/18 07:00 Ur Specific [place] 1.012 (1.010-1.035) 10/10/18 07:00 Urine Protein Negative (NEGATIVE) 10/10/18 07:00 Urine Glucose (UA) Negative (NEGATIVE) 10/10/18 07:00 Urine Ketones Negative (NEGATIVE) 10/10/18 07:00 Urine Blood Negative (NEGATIVE) 10/10/18 07:00 Urine Nitrite Negative (NEGATIVE) 10/10/18 07:00 Urine Bilirubin Negative (<2.0 mg/dL) 10/10/18 07:00 Urine Urobilinogen Negative mg/dL (0.2-1.0) 10/10/18 07:00 Ur Leukocyte Esterase Negative (NEGATIVE) 10/10/18 07:00 RPR Titer Nonreactive (NONREACTIVE) 10/09/18 07:50 lab noted Assessment: 10/11/18 14:42 withdrawal sx Plan: continue detox
[2018-10-11] MEDS: chlordiazePOXIDE HCL 10 MG CAPSULE PO SCH ×2 (17:20→22:22)
[2018-10-11] MEDS: MELATONIN 5 MG TABLETS PO PRN (22:22)
[2018-10-11] MEDS: THIAMINE HCL 100 MG TABLET (FP) PO SCH (22:22)
[2018-10-12] MEDS: chlordiazePOXIDE HCL 10 MG CAPSULE PO SCH ×2 (06:03→10:19)
[2018-10-12] MEDS ORDERED: METHADONE HCL 10 MG TABLET (FOR DETOX USE ONLY) PO SCH (10:00)
[2018-10-12] MEDS: PRENATAL VITAMINS W/ FOLIC ACID TABLET (FP) PO SCH (10:19)
[2018-10-12] MEDS: cloNIDine HCL 0.1 MG TABLET PO SCH ×2 (10:19→22:12)
--- NOTE | 2018-10-12 11:34 | PN ---
[facility] Progress Note (SOAP) Subjective: feeling better less tremor mild body aches sleep better at night Objective: 10/12/18 11:33 Vital Signs Temperature 96.8 F L 10/12/18 09:15 Pulse Rate 84 10/12/18 09:15 Respiratory Rate 18 10/12/18 09:15 Blood Pressure 117/79 10/12/18 09:15 O2 Sat by Pulse Oximetry (%) Laboratory Last Values WBC 5.8 K/mm3 (4.0-10.0) 10/09/18 07:50 RBC 3.89 M/mm3 (4.00-5.60) L 10/09/18 07:50 Hgb 12.4 GM/dL (11.7-16.9) 10/09/18 07:50 Hct 36.3 % (35.4-49) 10/09/18 07:50 MCV 93.5 fl (80-96) 10/09/18 07:50 MCH 31.9 pg (25.7-33.7) 10/09/18 07:50 MCHC 34.1 g/dl (32.0-35.9) 10/09/18 07:50 RDW 16.8 % (11.9-15.9) H 10/09/18 07:50 Plt Count 262 K/MM3 (134-434) 10/09/18 07:50 MPV 8.2 fl (7.5-11.1) D 10/09/18 07:50 Sodium 141 mmol/L (136-145) 10/09/18 07:50 Potassium 3.8 mmol/L (3.5-5.1) 10/09/18 07:50 Chloride 108 mmol/L (98-107) H 10/09/18 07:50 Carbon Dioxide 24 mmol/L (21-32) 10/09/18 07:50 Anion Gap 10 MMOL/L (8-16) 10/09/18 07:50 BUN 15 mg/dL (7-18) 10/09/18 07:50 Creatinine 0.9 mg/dL (0.55-1.3) 10/09/18 07:50 Creat Clearance w eGFR > 60 (>60) 10/09/18 07:50 Random Glucose 121 mg/dL (74-106) H 10/09/18 07:50 Calcium 8.4 mg/dL (8.5-10.1) L 10/09/18 07:50 Total Bilirubin 0.3 mg/dL (0.2-1) 10/09/18 07:50 AST 13 U/L (15-37) L 10/09/18 07:50 ALT 18 U/L (13-61) 10/09/18 07:50 Alkaline Phosphatase 92 U/L (45-117) 10/09/18 07:50 Total Protein 6.4 g/dl (6.4-8.2) 10/09/18 07:50 Albumin 3.2 g/dl (3.4-5.0) L 10/09/18 07:50 Urine Color Straw 10/10/18 07:00 Urine Appearance Clear 10/10/18 07:00 Urine pH 7.0 (5.0-8.0) D 10/10/18 07:00 Ur Specific [place] 1.012 (1.010-1.035) 10/10/18 07:00 Urine Protein Negative (NEGATIVE) 10/10/18 07:00 Urine Glucose (UA) Negative (NEGATIVE) 10/10/18 07:00 Urine Ketones Negative (NEGATIVE) 10/10/18 07:00 Urine Blood Negative (NEGATIVE) 10/10/18 07:00 Urine Nitrite Negative (NEGATIVE) 10/10/18 07:00 Urine Bilirubin Negative (<2.0 mg/dL) 10/10/18 07:00 Urine Urobilinogen Negative mg/dL (0.2-1.0) 10/10/18 07:00 Ur Leukocyte Esterase Negative (NEGATIVE) 10/10/18 07:00 RPR Titer Nonreactive (NONREACTIVE) 10/09/18 07:50 lab noted Assessment: 10/12/18 11:33 mild withdrawal sx Plan: continue detox
[2018-10-12] MEDS: THIAMINE HCL 100 MG TABLET (FP) PO SCH (22:12)
[2018-10-12] MEDS: MELATONIN 5 MG TABLETS PO PRN (22:12)
[2018-10-13] MEDS ORDERED: METHADONE HCL 5 MG TABLET (FOR DETOX USE ONLY) PO SCH (06:00)
[2018-10-13 06:12] VITALS: BP 122/64; PULSE 68; TEMP 97.8
--- NOTE | 2018-10-13 10:25 | DS ---
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3 % (35.4-49) 10/09/18 07:50 MCV 93.5 fl (80-96) 10/09/18 07:50 MCH 31.9 pg (25.7-33.7) 10/09/18 07:50 MCHC 34.1 g/dl (32.0-35.9) 10/09/18 07:50 RDW 16.8 % (11.9-15.9) H 10/09/18 07:50 Plt Count 262 K/MM3 (134-434) 10/09/18 07:50 MPV 8.2 fl (7.5-11.1) D 10/09/18 07:50 Sodium 141 mmol/L (136-145) 10/09/18 07:50 Potassium 3.8 mmol/L (3.5-5.1) 10/09/18 07:50 Chloride 108 mmol/L (98-107) H 10/09/18 07:50 Carbon Dioxide 24 mmol/L (21-32) 10/09/18 07:50 Anion Gap 10 MMOL/L (8-16) 10/09/18 07:50 BUN 15 mg/dL (7-18) 10/09/18 07:50 Creatinine 0.9 mg/dL (0.55-1.3) 10/09/18 07:50 Creat Clearance w eGFR > 60 (>60) 10/09/18 07:50 Random Glucose 121 mg/dL (74-106) H 10/09/18 07:50 Calcium 8.4 mg/dL (8.5-10.1) L 10/09/18 07:50 Total Bilirubin 0.3 mg/dL (0.2-1) 10/09/18 07:50 AST 13 U/L (15-37) L 10/09/18 07:50 ALT 18 U/L (13-61) 10/09/18 07:50 Alkaline Phosphatase 92 U/L (45-117) 10/09/18 07:50 Total Protein 6.4 g/dl (6.4-8.2) 10/09/18 07:50 Albumin 3.2 g/dl (3.4-5.0) L 10/09/18 07:50 Urine Color Straw 10/10/18 07:00 Urine Appearance Clear 10/10/18 07:00 Urine pH 7.0 (5.0-8.0) D 10/10/18 07:00 Ur Specific [place] 1.012 (1.010-1.035) 10/10/18 07:00 Urine Protein Negative (NEGATIVE) 10/10/18 07:00 Urine Glucose (UA) Negative (NEGATIVE) 10/10/18 07:00 Urine Ketones Negative (NEGATIVE) 10/10/18 07:00 Urine Blood Negative (NEGATIVE) 10/10/18 07:00 Urine Nitrite Negative (NEGATIVE) 10/10/18 07:00 Urine Bilirubin Negative (<2.0 mg/dL) 10/10/18 07:00 Urine Urobilinogen Negative mg/dL (0.2-1.0) 10/10/18 07:00 Ur Leukocyte Esterase Negative (NEGATIVE) 10/10/18 07:00 RPR Titer Nonreactive (NONREACTIVE) 10/09/18 07:50 lab noted - Treatment Hospital Course: Detox Protocol Followed, Detoxed Safely, Responded well, Discharged Condition Good, Rehab Referral Accepted Patient has Accepted a Rehab Referral to: as per counselor arrangement - Medication Discharge Medications: Ambulatory Orders Aripiprazole [Abilify -] 5 mg PO DAILY 03/28/16 Duloxetine HCl [Cymbalta -] 30 mg PO BID 03/28/16 Aripiprazole [Abilify -] 5 mg PO BID #60 tablet 09/10/16 Duloxetine HCl [Cymbalta -] 60 mg PO DAILY #30 capsule. 09/10/16 Naloxone HCl [Narcan] 4 mg NS ASDIR PRN #1 spray 10/12/18 cloNIDine HCL [Catapres -] 0.1 mg PO BID #30 tablet 10/12/18 - Diagnosis (1) Substance induced mood disorder Status: Suspected (2) Alcohol dependence with uncomplicated withdrawal Status: Acute (3) Opioid dependence with withdrawal Status: Acute (4) Nicotine dependence Status: Acute Qualifiers: Nicotine product type: cigarettes Substance use status: in withdrawal Qualified Code(s): F17.213 - Nicotine dependence, cigarettes, with withdrawal - AMA Did Patient Leave Against Medical Advice: No
== END 2018-10-13 09:00 | disposition home or self-care (01) | DRG 773 ==
LOC: YASAS 08:31 → Y3N 10:08
PROVIDERS: ADMIT Neuromusculoskeletal Medicine & OMM; ATTEND Neuromusculoskeletal Medicine & OMM
PROC: HZ2ZZZZ Detoxification Services for Substance Abuse Treatment (ICD-10-PCS; principal; 2018-10-08)
DX: F11.23 Opioid dependence with withdrawal (principal); F10.230 Alcohol dependence with withdrawal, uncomplicated; F14.20 Cocaine dependence, uncomplicated; F12.20 Cannabis dependence, uncomplicated; F17.213 Nicotine dependence, cigarettes, with withdrawal; F19.24 Other psychoactive substance dependence with psychoactive substance-induced mood disorder; Z91.013 Allergy to seafood
CPT/HCPCS: 36415; 80053; 81003; 85027; 86593; J0735